=== PATIENT | female | born 1940 | race Caucasian/White ===

== ENCOUNTER 2018-08-27 12:26 | Emergency (ER) | payer BC, MEDICARE ==
[2018-08-27 12:42] VITALS: BP 147/77; PULSE 88; RESP 18; TEMP 97.7
[2018-08-27] MEDS ORDERED: LIDOCAINE 1% INJ 10MG/ML (20 ML MDV) SQ ONE (12:58)
--- NOTE | 2018-08-27 12:59 | ED ---
Wound/Laceration HPI - General Chief Complaint: Wound/Laceration Stated Complaint: Laceration Time Seen by Provider: 08/27/18 12:43 Source: patient Mode of arrival: ambulatory Limitations: no limitations - History of Present Illness Initial Comments: Patient is a 78-year-old female presents emergency Department with complaints of a laceration to the base of her left thumb. Patient states she was trying to remove a hard plastic piece with a very sharp knife and slipped and cut her left thumb. Patient denies being on blood thinners. Patient denies any other injuries at this time. Bleeding is controlled at this time. Patient is unaware of last tetanus vaccine. - Related Data Allergies Allergy/AdvReac Type Severity Reaction Status Date / Time No Known Allergies Allergy Verified 08/27/18 12:42 Review of Systems ROS Statement: Those systems with pertinent positive or pertinent negative responses have been documented in the HPI. ROS Other: All systems not noted in ROS Statement are negative. Past Medical History Past Medical History: COPD, CVA/TIA, Hyperlipidemia, Hypertension, Thyroid Disorder Additional Past Medical History / Comment(s): thryoid ca History of Any Multi-Drug Resistant Organisms: None Reported Past Surgical History: Adenoidectomy, Hysterectomy, Orthopedic Surgery, Tonsillectomy Additional Past Surgical History / Comment(s): eye, thyroid Past Psychological History: Depression Smoking Status: Former smoker Past Alcohol Use History: None Reported Past Drug Use History: None Reported General Exam - General Exam Comments Initial Comments: GENERAL: Well-appearing, well-nourished and in no acute distress. HEAD: Atraumatic, normocephalic. EYES: Pupils equal round and reactive to light, extraocular movements intact, sclera anicteric, conjunctiva are normal. ENT: TMs normal, nares patent, oropharynx clear without exudates. Moist mucous membranes. NECK: Normal range of motion, supple without lymphadenopathy or JVD. LUNGS: Breath sounds clear to auscultation bilaterally and equal. No wheezes rales or rhonchi. HEART: Regular rate and rhythm without murmurs, rubs or gallops. ABDOMEN: Soft, nontender, normoactive bowel sounds. No guarding, no rebound. No masses appreciated. : Deferred EXTREMITIES: Normal range of motion, no pitting or edema. No clubbing or cyanosis. NEUROLOGICAL: Cranial nerves II through XII grossly intact. Normal speech, normal gait. PSYCH: Normal mood, normal affect. Limitations: no limitations Expanded Type of lesion: Present: laceration (Base of left thumb) Course Vital Signs 08/27/18 08/27/18 12:37 14:43 Temperature 97.7 F 97.7 F Pulse Rate 88 88 Respiratory 18 18 Rate Blood Pressure 147/77 147/77 O2 Sat by Pulse 97 97 Oximetry Procedures - Laceration Laceration #1 Consent Obtained: verbal consent Indication: laceration Site: hand Size (cm): 0 (1.5 ) Description: linear Depth: simple, single layer Anesthetic Used: lidocaine 1% Anesthesia Technique: local infiltration Amount (mls): 2 Pre-repair: irrigated extensively Type of Sutures: nylon Size of Sutures: 5-0 Number of Sutures: 3 Technique: simple, interrupted Patient Tolerated Procedure: well Medical Decision Making - Medical Decision Making Patient is a 78-year-old female with a laceration to the base of her left thumb after using a knife to cut a hard piece of plastic in the knife slipped. Wound was cleaned and 3, 5-0 sutures were used to close the wound. Patient tolerated procedure well. Patient's tetanus vaccine was updated today. Patient will be discharged home. Patient will return in 10-12 days have sutures removed. Patient is in agreement with the plan. Case discussed with Dr. Avendaño. Disposition Clinical Impression: Laceration of left hand Disposition: HOME SELF-CARE Condition: Stable Instructions (If sedation given, give patient instructions): Care For Your Stitches (ED) Additional Instructions: Please return to the Emergency Department if symptoms worsen or any other concerns. She remained to be removed and 10-12 days. Is patient prescribed a controlled substance at d/c from ED?: No Referrals: Jackie Wynn MD [Primary Care Provider] - 1-2 days
[2018-08-27] MEDS ORDERED: DIPH,PERTUS(ACELL)TETVAC-LF 0.5 ML VIAL IM ONE (13:53)
== END 2018-08-27 14:43 | disposition home or self-care (01) ==
LOC: EC 12:26
DX: S61.012A Laceration without foreign body of left thumb without damage to nail, initial encounter (principal); Z86.73 Personal history of transient ischemic attack (TIA), and cerebral infarction without residual deficits; Z85.850 Personal history of malignant neoplasm of thyroid; Z87.891 Personal history of nicotine dependence; Z23 Encounter for immunization; W26.0XXA Contact with knife, initial encounter; Y93.89 Activity, other specified
CPT/HCPCS: 99282; 12001; 90471; 90715; J2001